=== PATIENT | male | born 1940 | race Caucasian/White ===

== ENCOUNTER 2016-08-12 19:14 | Emergency (ER) | payer OTHER ==
[~2016-08-12] VITALS: Ht 177.8 cm; Wt 78.7 kg
[~2016-08-12 19:14] MED LIST: ALBU1AER9 INH; AMR2 PO; ASPEC81 PO; CLOB-65 EXT; CLR10 PO; DIGO0.122 PO; IBUP600T44 PO; LOSA50TA6 PO; LSX20 PO; MAGN400T5 PO; METO25TA3 PO; NXM/40 PO; SIMV40TA2 PO
[2016-08-12 19:26] VITALS: Ht 177.8 cm; Wt 78.7 kg
[2016-08-12] MEDS ORDERED: SODIUM CHLORIDE 0.9% 1000ML 1,000 ML IV STA (21:12)
[2016-08-12 21:43] LABS: BASO % 0.2 %; BASO ABS # 0.02 K/uL (0-0.2); COMPLETE YES; EOS % 2.5 %; HEMATOCRIT 45.4 % (42-52); IG% 0.4 %; LYMPH % 7.2 %; LYMPH ABS # 0.64 K/uL (1.2-3.4); MEAN CELL VOLUME 91.7 fL (80-100); MEAN CORPUSCULAR HEMOGLOBIN 31.3 pg (25-34); MEAN CORPUSCULAR HGB CONC 34.1 g/dl (32-36); MEAN PLATELET VOLUME 10.9 fL (7.4-10.4); MONO % 12.2 %; NEUT % 77.5 %; PLATELET COUNT 130 K/uL (130-400); RED BLOOD COUNT 4.95 M/uL (4.7-6.1)
[2016-08-12 22:00] LABS: BUN/CREATININE RATIO 10.8 (10-20); CALCIUM 9.1 mg/dl (8.5-10.1); CREATININE 1.8 mg/dl (0.60-1.40); POTASSIUM 3.9 mmol/L (3.5-5.1)
[2016-08-12 22:03] VITALS: TEMP 36.4
[2016-08-12 22:17] LABS: URINE APPEARANCE CLEAR (CLEAR); URINE BILIRUBIN NEG (NEG); URINE COLOR DK YELLOW; URINE NITRITE NEG (NEG); URINE SPECIFIC GRAVITY 1.018 (1.000-1.030); UROBILINOGEN NEG (NEG); ZZUR CULT IF INDIC CLEAN CATCH NO
[2016-08-12 22:26] LABS: MANUAL MICROSCOPIC REQUIRED? NO; REVIEW REQ? NO
--- NOTE | 2016-08-12 22:47 | EMERGENCY ROOM VISIT NOTE ---
History Report prepared by Kyle: Sigrid Cervantes Under the Supervision of: Dr. Vamshi Campbell M.D. First contact with patient: 20:55 Chief Complaint: URINARY SYMPTOMS Stated Complaint: FEVER,BLADDER INFECTION Nursing Triage Summary: dx with bladder infection 1 week ago, did course of AMoxil, pt has continued fever, started on another antibiotic today pt has fever, took Tylenol with relief see Dr Kong, urology History of Present Illness The patient is a 76 year old male who presents to the Emergency Room with complaints of a persistent fever that was first noticed earlier today. He was able to relieve the fever with Tylenol. The patient called Dr. Kong office and the nurse recommended coming into the ED for further evaluation. The patient was diagnosed with a bladder infection one week ago by Dr. Kong - Urology. He was started on amoxicillin, but the doctor called 3-4 days later and said that they needed to change the antibiotic that he is on. The patient was then started on Bactrim, which he started 4 days ago. He denies abdominal pain and lower extremity edema. The patient denies any history of prostate problems. The patient adds that he has a bioprosthetic valve, but he is not on any blood thinners. Source of History: patient Onset: earlier today Position: other (global) Quality: other (fever) Timing: other (persistent) Associated Symptoms: No abdominal pain Note: no lower extremity edema Review of Systems See HPI for pertinent positives & negatives. A total of 10 systems reviewed and were otherwise negative. Past Medical & Surgical Medical Problems: (1) Hypertension Surgical Problems: (1) History of appendectomy (2) Mitral valve replaced Family History Diabetes mellitus FH: lung disease FHx: cancer FHx: heart disease Hypertension Social History Smoking Status: Former Smoker Alcohol Use: none Drug Use: none Marital Status: Housing Status: lives with friends Occupation Status: unemployed Current/Historical Medications Scheduled Aspirin Enteric Coated (Ecotrin Or Generic), 81 MG PO DAILY Atorvastatin (Lipitor), 80 MG PO HS Esomeprazole Magnesium (Nexium), 40 MG PO QAM Finasteride (Finasteride), 5 MG PO LUNCH Furosemide (Lasix), 20 MG PO Q2D Glimepiride (Glimepiride), 1 TAB PO BID Losartan Potassium (Cozaar), 50 MG PO QAM Magnesium Oxide (Mag-Ox), 400 MG PO HS Metoprolol Succ (Toprol Xl) (Toprol-Xl), 100 MG PO QAM Sulfa/Trimethoprim (Bactrim Ds 800MG/160MG), 1 TAB PO BID Tamsulosin Hcl (Flomax), 0.4 MG PO LUNCH Scheduled PRN Albuterol Sulfate (Proair Respiclick), 2 PUFFS INH Q4 PRN for SOB/Wheezing Allergies Coded Allergies: Bupropion (Verified Allergy, Intermediate, HIVES, 08/12/16) Phenazopyridine (Verified Allergy, Intermediate, STOMACH PAIN, 08/12/16) Physical Exam Vital Signs Date Time Temp Pulse Resp B/P Pulse Ox O2 Delivery O2 Flow Rate FiO2 08/12/16 23:15 74 20 112/68 93 Room Air 08/12/16 22:03 36.4 63 16 116/69 94 Room Air 08/12/16 21:10 71 18 118/72 95 Room Air 08/12/16 19:26 37.0 76 20 129/74 93 Room Air Physical Exam GENERAL: Patient is well appearing and in no acute distress. HEENT: No acute trauma, normocephalic atraumatic, mucous membranes moist, no nasal congestion, no scleral icterus. NECK: No stridor, no adenopathy, no meningismus, trachea is midline. LUNGS: No dyspnea. Clear to auscultation and equal bilaterally. No wheeze, no rhonchi. HEART: Regular rate and rhythm. No murmurs, rubs, gallops appreciated. ABDOMEN: Soft, nontender, bowel sounds positive, no masses appreciated, no peritonitis. BACK: No midline tenderness, no CVA tenderness EXTREMITIES: Normal motion all extremities, no cyanosis, no edema. NEUROLOGIC: Alert and oriented, no acute motor or sensory deficits, no focal weakness, cranial nerves grossly intact. SKIN: No rash, no jaundice, no diaphoresis. Medical Decision & Procedures Laboratory Results 08/12/16 21:29 Red Blood Count 4.95, Mean Corpuscular Volume 91.7, Mean Corpuscular Hemoglobin 31.3, Mean Corpuscular Hemoglobin Concent 34.1, Mean Platelet Volume 10.9, Neutrophils (%) (Auto) 77.5, Lymphocytes (%) (Auto) 7.2, Monocytes (%) (Auto) 12.2, Eosinophils (%) (Auto) 2.5, Basophils (%) (Auto) 0.2, Neutrophils # (Auto ) 6.89, Lymphocytes # (Auto) 0.64, Monocytes # (Auto) 1.09, Eosinophils # (Auto ) 0.22, Basophils # (Auto) 0.02 08/12/16 21:29 Test 08/12/16 21:00 08/12/16 21:29 Urine Color DK YELLOW Urine Appearance CLEAR (CLEAR) Urine pH 6.0 (4.5-7.5) Urine Specific [place] 1.018 (1.000-1.030) Urine Protein NEG (NEG) Urine Glucose (UA) NEG (NEG) Urine Ketones NEG (NEG) Urine Occult Blood NEG (NEG) Urine Nitrite NEG (NEG) Urine Bilirubin NEG (NEG) Urine Urobilinogen NEG (NEG) Urine Leukocyte Esterase TRACE (NEG) Urine WBC (Auto) 1-5 /hpf (0-5) Urine RBC (Auto) 0-4 /hpf (0-4) Urine Hyaline Casts (Auto) 1-5 /lpf (0-5) Urine Epithelial Cells (Auto) 10-20 /lpf (0-5) Urine Bacteria (Auto) NEG (NEG) White Blood Count 8.90 K/uL (4.8-10.8) Red Blood Count 4.95 M/uL (4.7-6.1) Hemoglobin 15.5 g/dL (14.0-18.0) Hematocrit 45.4 % (42-52) Mean Corpuscular Volume 91.7 fL (80-100) Mean Corpuscular Hemoglobin 31.3 pg (25-34) Mean Corpuscular Hemoglobin Concent 34.1 g/dl (32-36) Platelet Count 130 K/uL (130-400) Mean Platelet Volume 10.9 fL (7.4-10.4) Neutrophils (%) (Auto) 77.5 % Lymphocytes (%) (Auto) 7.2 % Monocytes (%) (Auto) 12.2 % Eosinophils (%) (Auto) 2.5 % Basophils (%) (Auto) 0.2 % Neutrophils # (Auto) 6.89 K/uL (1.4-6.5) Lymphocytes # (Auto) 0.64 K/uL (1.2-3.4) Monocytes # (Auto) 1.09 K/uL (0.11-0.59) Eosinophils # (Auto) 0.22 K/uL (0-0.5) Basophils # (Auto) 0.02 K/uL (0-0.2) RDW Standard Deviation 48.0 fL (36.4-46.3) RDW Coefficient of Variation 14.3 % (11.5-14.5) Immature Granulocyte % (Auto) 0.4 % Immature Granulocyte # (Auto) 0.04 K/uL (0.00-0.02) Anion Gap 8.0 mmol/L (3-11) Est Creatinine Clear Calc Drug Dose 36.6 ml/min Estimated GFR () 41.7 Estimated GFR (Non- 36.0 BUN/Creatinine Ratio 10.8 (10-20) Calcium Level 9.1 mg/dl (8.5-10.1) Laboratory results as reviewed by me. Medications Administered Medications (Trade) Dose Ordered Sig/Yudith Route Start Time Stop Time Status Last Admin Dose Admin Sodium Chloride (Nss 1000ml) 1,000 ml @ 999 mls/hr Q1H1M STAT IV 08/12/16 21:12 08/12/16 22:12 DC 08/12/16 21:12 999 MLS/HR ED Course 2102: The patient was evaluated in room B8. A complete history and physical exam was performed. 2111: Ordered Sodium Chloride 1000 ml @ 999 mls/hr IV 2244: Reevaluated the patient. He reports that he feels great and has not had a fever since he has been here. Discussed results and discharge instructions: he verbalized understanding and agreement. The patient is ready for discharge. Medical Decision Differential: Viral, Pharyngitis, Cellulitis, Pneumonia, Influenza, Meningitis, Sepsis, Bacteremia, UTI/Pyelonephritis, Endocrine, Toxicologic, amongst other pathologies entertained. 76 yr old male with tympanic temp elevation at home. He is without any fever hear. Labs are unremarkable. Lungs clear and no shob/cough. UA clear now. Currently being treated for UTI on Bactrim which his Klebsiella UTI is susceptible to. UA is now clear and I do not feel acutely causing his fever. He has no evidence pyelonephritis nor does he have surgical abdomen. No rashes nor other findings. He has no fevers on rechecks here. As no acute findings I see no indication for admission at this time and patient comfortable with going home. Aware RTED if worsening or other concerns. Impression Primary Impression: Fever Scribe Attestation The scribe's documentation has been prepared under my direction and personally reviewed by me in its entirety. I confirm that the note above accurately reflects all work, treatment, procedures, and medical decision making performed by me. Departure Information Dispostion Home / Self-Care Referrals [place] PA-C (PCP) Forms HOME CARE DOCUMENTATION FORM, IMPORTANT VISIT INFORMATION Patient Instructions Fever - [facility], My [facility] Health Problem Qualifiers Primary Impression: Fever Fever type: unspecified Qualified Codes: R50.9 - Fever, unspecified
[2016-08-12] MEDS ORDERED: PRS5 PO (23:00)
[2016-08-12] MEDS ORDERED: SULF800T23 PO (23:00)
[2016-08-12] MEDS ORDERED: ALBU18002 INH (23:00)
[2016-08-12] MEDS ORDERED: ASPI81TA21 PO (23:00)
[2016-08-12] MEDS ORDERED: TAMS0.4C38 PO (23:00)
[2016-08-12] MEDS ORDERED: FURO-85 PO (23:00)
[2016-08-12] MEDS ORDERED: ATOR-26 PO (23:00)
[2016-08-12 23:15] VITALS: BP 112/68; PULSE 74; O2SAT 93
== END 2016-08-12 23:26 | disposition home or self-care (01) ==
LOC: C.EDB 19:15
DX: R50.9 Fever, unspecified (principal); N39.0 Urinary tract infection, site not specified; B96.89 Other specified bacterial agents as the cause of diseases classified elsewhere; I10 Essential (primary) hypertension; I34.1 Nonrheumatic mitral (valve) prolapse; Z98.890 Other specified postprocedural states; Z87.891 Personal history of nicotine dependence; Z79.82 Long term (current) use of aspirin; Z79.899 Other long term (current) drug therapy; Z88.8 Allergy status to other drugs, medicaments and biological substances; Z83.3 Family history of diabetes mellitus; Z80.9 Family history of malignant neoplasm, unspecified; Z82.49 Family history of ischemic heart disease and other diseases of the circulatory system